=== PATIENT | female | born 1975 | race Caucasian/White ===

== ENCOUNTER 2020-10-14 06:30 | Emergency (ER) | payer OTHER ==
[~2020-10-14] VITALS: Ht 172.7 cm; Wt 88.5 kg
[~2020-10-14 06:30] MED LIST: ZOFRAN ODT 4 MG4 MG PO
[2020-10-14 08:15] LABS: HEMOGLOBIN 16.1 gm/dl (12.3-15.3); RED BLOOD COUNT 5.38 M/UL (4.00-5.10); WHITE BLOOD COUNT 14.5 K/UL (4.5-11.0)
[2020-10-14 09:27] LABS: BUN/CREATININE RATIO 18 (0-10)
[2020-10-14] MEDS ORDERED: VENTOLIN HFA 66.7 GM INH (14:44)
[2020-10-14] MEDS ORDERED: CLONAZEPAM1 MG PO (14:46)
[2020-10-14] MEDS ORDERED: FLUOXETINE HCL40 MG PO (14:47)
[2020-10-14] MEDS ORDERED: TIZANIDINE HCL4 MG PO (14:48)
[2020-10-14] MEDS ORDERED: ZYRTEC10 MG PO (15:53)
[2020-10-14] MEDS ORDERED: IBUPROFEN200 MG PO (15:55)
[2020-10-14] MEDS ORDERED: KEPPRA500 MG PO (15:56)
[2020-10-14] MEDS ORDERED: LOPRESSOR 25 MG25 MG PO (16:54)
== END 2020-10-14 17:10 | disposition home or self-care (01) ==
LOC: ER1 06:30 → CDU 14:06 → ER1 14:06
PROVIDERS: Emergency Medicine
DX: I47.1 Supraventricular tachycardia (principal); F41.9 Anxiety disorder, unspecified; Z88.2 Allergy status to sulfonamides; F17.210 Nicotine dependence, cigarettes, uncomplicated; Z20.822 Contact with and (suspected) exposure to COVID-19
CPT/HCPCS: 71045; 80053; 81001; 82550; 82553; 83605; 83690; 84439; 84443; 84484; 85025; 85379; 85610; 85652; 85730; 93005; 99285; J0153; Q9967; U0002

== ENCOUNTER → 2020-11-25 | Outpatient (CLI) | payer OTHER ==
[~2020-11-25] MED LIST changes: +CLONAZEPAM1 MG PO; +FLUOXETINE HCL40 MG PO; +IBU800 MG PO; +IBUPROFEN200 MG PO; +KEPPRA500 MG PO; +KLONOPIN1 MG PO; +LOPRESSOR 25 MG25 MG PO; +METOPROLOL TART25 MG PO; +PROZAC20 MG PO; +TIZANIDINE HCL4 MG PO; +VENTOLIN HFA 66.7 GM INH; +ZYRTEC10 MG PO
[2020-11-25 14:09] LABS: HEMOGLOBIN 14.4 gm/dl (12.3-15.3); RED BLOOD COUNT 4.75 M/UL (4.00-5.10); WHITE BLOOD COUNT 6.7 K/UL (4.5-11.0)
[2020-11-25 14:31] LABS: BUN/CREATININE RATIO 19 (0-10)
== END ==
LOC: LAB 13:28
PROVIDERS: Internal Medicine Cardiovascular Disease
DX: I47.1 Supraventricular tachycardia (principal); R00.2 Palpitations
CPT/HCPCS: 36415; 80048; 85025

== ENCOUNTER 2020-11-27 08:42 | Outpatient (CLI) | payer OTHER ==
[~2020-11-27] VITALS: Ht 172.7 cm; Wt 88.5 kg
[~2020-11-27 08:42] MED LIST changes: -IBU800 MG PO; -KLONOPIN1 MG PO; -METOPROLOL TART25 MG PO; -PROZAC20 MG PO
[2020-11-27] MEDS ORDERED: KLONOPIN1 MG PO (09:19)
[2020-11-27] MEDS ORDERED: METOPROLOL TART25 MG PO (09:20)
[2020-11-27] MEDS ORDERED: PROZAC20 MG PO (09:20)
[2020-11-27] MEDS ORDERED: IBU800 MG PO (09:20)
--- NOTE | 2020-11-27 18:37 | NUR ---
FIGURE 8 SUTURE REMOVED AT 1730. PRESSURE APPLIED 5 MINUTES. DRESSING REAPPLIED. RECHECKED AT 1745 DRESSING CDI. RECHECKED AT 1800 DRESSING CDI
--- NOTE | 2020-11-27 20:00 | NUR ---
PATIENT RESTING IN BED AT SHIFT CHANGE, DRESSING TO RT GROIN VISUALIZED, NO DRAINAGE OR SWELLING NOTED. PT DENIES HAVING PAIN AT SITE, C/O GENERALIZED ARTHRITIC PAIN. MEDICATION ADMINISTERED PER ORDERS. AT THIS TIME, PATIENT IS WALKING AROUND UNIT WITH FAMILY.
--- NOTE | 2020-11-27 22:00 | NUR ---
PATIENT IS CURRENTLY RESTING IN BED. NO S/S HEMATOMA TO RT GROIN; NO DRAINAGE NOTED TO DRESSING; PT C/O GENERALIZED PAIN, MEDICATION ADMINISTERED
== END 2020-11-28 10:00 | disposition home or self-care (01) ==
LOC: CATH 08:42 → PROG CARE 15:16 → CATH 11-28 10:00
DX: I47.1 Supraventricular tachycardia (principal); F17.210 Nicotine dependence, cigarettes, uncomplicated; F41.9 Anxiety disorder, unspecified; F32.9 Major depressive disorder, single episode, unspecified; L40.50 Arthropathic psoriasis, unspecified; Z88.2 Allergy status to sulfonamides; Z79.1 Long term (current) use of non-steroidal anti-inflammatories (NSAID); Z79.899 Other long term (current) drug therapy
CPT/HCPCS: 85347; 93005; 93613; 93620; 93621; 93622; 93623; 99152; 99153; C1730; C1733; C1766; J1200; J1644; J1742; J2250; J3010; J7040; J7050; Q9965

== ENCOUNTER 2022-01-24 23:43 | Emergency (ER) | payer OTHER ==
[~2022-01-24 23:43] MED LIST changes: +IBU800 MG PO; +KLONOPIN1 MG PO; +METOPROLOL TART25 MG PO; +PROZAC20 MG PO
[2022-01-25 00:33] LABS: HEMOGLOBIN 13.3 gm/dl (12.3-15.3); RED BLOOD COUNT 4.58 M/UL (4.00-5.10); WHITE BLOOD COUNT 12.4 K/UL (4.5-11.0)
[2022-01-25 00:54] LABS: BUN/CREATININE RATIO 19 (0-10)
[2022-01-25] MEDS ORDERED: DOXYCYCLINE HY100 MG PO (16:47)
[2022-01-25] MEDS ORDERED: KEPPRA500 MG PO (16:47)
[2022-01-28] MEDS ORDERED: DOXYCYCLINE HY100 M2 PO (11:53)
[2022-01-28] MEDS ORDERED: HYDROCODONE-AC1 EAC1 PO (11:54)
[2022-01-28] MEDS ORDERED: KEPPRA500 MG PO (11:54)
[2022-01-28] MEDS ORDERED: PRILOSEC OTC20 MG PO (11:55)
[2022-01-28] MEDS ORDERED: PROZAC40 MG PO (11:55)
== END 2022-01-25 06:04 | disposition home or self-care (01) ==
LOC: ER1 23:43
DX: S82.842A Displaced bimalleolar fracture of left lower leg, initial encounter for closed fracture (principal); F17.210 Nicotine dependence, cigarettes, uncomplicated; Z88.2 Allergy status to sulfonamides; F15.10 Other stimulant abuse, uncomplicated; F12.10 Cannabis abuse, uncomplicated; F11.10 Opioid abuse, uncomplicated; Z79.899 Other long term (current) drug therapy; X58.XXXA Exposure to other specified factors, initial encounter
CPT/HCPCS: 73610; 80053; 80307; 81001; 83690; 84703; 85025; 87077; 87086; 87186; 96374; 96375; 99284; J1885; J2405; J2550

== ENCOUNTER 2022-01-25 13:44 | Emergency (ER) | payer OTHER ==
[2022-01-25 14:30] LABS: WHITE BLOOD COUNT 14.9 K/UL (4.5-11.0)
[2022-01-25 14:31] LABS: HEMOGLOBIN 15.3 gm/dl (12.3-15.3); RED BLOOD COUNT 5.12 M/UL (4.00-5.10)
[2022-01-25 14:52] LABS: BUN/CREATININE RATIO 21 (0-10)
[2022-01-25] MEDS ORDERED: KEPPRA500 MG PO (16:47)
[2022-01-25] MEDS ORDERED: DOXYCYCLINE HY100 MG PO (16:47)
[2022-01-28] MEDS ORDERED: DOXYCYCLINE HY100 M2 PO (11:53)
[2022-01-28] MEDS ORDERED: KEPPRA500 MG PO (11:54)
[2022-01-28] MEDS ORDERED: HYDROCODONE-AC1 EAC1 PO (11:54)
[2022-01-28] MEDS ORDERED: PRILOSEC OTC20 MG PO (11:55)
[2022-01-28] MEDS ORDERED: PROZAC40 MG PO (11:55)
== END 2022-01-25 17:20 | disposition home or self-care (01) ==
LOC: ER1 13:44
PROVIDERS: Family Medicine
DX: G40.909 Epilepsy, unspecified, not intractable, without status epilepticus (principal); J18.9 Pneumonia, unspecified organism; F13.20 Sedative, hypnotic or anxiolytic dependence, uncomplicated; Z86.59 Personal history of other mental and behavioral disorders; Z20.822 Contact with and (suspected) exposure to COVID-19
CPT/HCPCS: 70450; 71045; 80053; 82550; 82553; 83605; 83735; 84439; 84443; 84484; 85025; 85610; 93005; 96374; 99285; G0480; J1953; U0002

== ENCOUNTER → 2022-01-28 | Outpatient (CLI) | payer OTHER ==
[~2022-01-28] MED LIST changes: +DOXYCYCLINE HY100 M2 PO; +DOXYCYCLINE HY100 MG PO; +HYDROCODONE-AC1 EAC1 PO; +PRILOSEC OTC20 MG PO; +PROZAC40 MG PO
[2022-01-28 12:06] LABS: HEMOGLOBIN 14.9 gm/dl (12.3-15.3); WHITE BLOOD COUNT 10.7 K/UL (4.5-11.0)
[2022-01-28 12:29] LABS: BUN/CREATININE RATIO 35 (0-10)
== END ==
LOC: OPSV2 01-27 12:30
PROVIDERS: Podiatrist Foot & Ankle Surgery
DX: Z01.818 Encounter for other preprocedural examination (principal)
CPT/HCPCS: 80048; 85027; 93005

== ENCOUNTER → 2022-02-02 | Day surgery (SDC) | payer OTHER ==
[~2022-02-02] VITALS: Ht 170.2 cm; Wt 92.5 kg
== END | disposition home or self-care (01) ==
LOC: OR 06:55
DX: S82.842A Displaced bimalleolar fracture of left lower leg, initial encounter for closed fracture (principal); S93.432A Sprain of tibiofibular ligament of left ankle, initial encounter; S91.302A Unspecified open wound, left foot, initial encounter; F17.210 Nicotine dependence, cigarettes, uncomplicated; G40.909 Epilepsy, unspecified, not intractable, without status epilepticus; L40.50 Arthropathic psoriasis, unspecified; D72.828 Other elevated white blood cell count; Z88.2 Allergy status to sulfonamides; Z88.1 Allergy status to other antibiotic agents; Z79.899 Other long term (current) drug therapy; V89.2XXA Person injured in unspecified motor-vehicle accident, traffic, initial encounter
CPT/HCPCS: 71045; 73600; 73610; 76000; C1713; J0690; J1100; J2250; J2795; J3010; J3370; Q4133

== ENCOUNTER → 2022-02-07 | Outpatient (CLI) | payer OTHER | LOC: KOH-I 14:00 | DX: S82.842D Displaced bimalleolar fracture of left lower leg, subsequent encounter for closed fracture with routine healing (principal) | CPT/HCPCS: 73610 ==

== ENCOUNTER → 2022-02-21 | Outpatient (CLI) | payer OTHER | LOC: KOH-I 13:13 | DX: S82.842D Displaced bimalleolar fracture of left lower leg, subsequent encounter for closed fracture with routine healing (principal); X58.XXXD Exposure to other specified factors, subsequent encounter | CPT/HCPCS: 73610 ==

== ENCOUNTER → 2022-02-24 | Outpatient (CLI) | payer OTHER ==
[~2022-02-24] VITALS: Ht 170.2 cm; Wt 92.5 kg
== END ==
LOC: OPSV 02-23 09:00
DX: S81.802D Unspecified open wound, left lower leg, subsequent encounter (principal); T81.31XA Disruption of external operation (surgical) wound, not elsewhere classified, initial encounter; X58.XXXA Exposure to other specified factors, initial encounter
CPT/HCPCS: 96365; C1751; J0696

== ENCOUNTER → 2022-03-07 | Outpatient (CLI) | payer OTHER | LOC: KOH-I 13:52 | DX: S82.842D Displaced bimalleolar fracture of left lower leg, subsequent encounter for closed fracture with routine healing (principal); X58.XXXD Exposure to other specified factors, subsequent encounter | CPT/HCPCS: 73610 ==

== ENCOUNTER 2022-03-15 16:46 | Emergency (ER) | payer OTHER ==
[2022-03-15 19:06] LABS: HEMOGLOBIN 12.4 gm/dl (12.3-15.3); WHITE BLOOD COUNT 8.2 K/UL (4.5-11.0)
[2022-03-15 19:13] LABS: BUN/CREATININE RATIO 21 (0-10)
[2022-03-15] MEDS ORDERED: ELIQUIS 5 MG TAB5 MG PO (22:20)
== END 2022-03-15 22:30 | disposition home or self-care (01) ==
LOC: ER1 16:46
PROVIDERS: Emergency Medicine
DX: M79.89 Other specified soft tissue disorders (principal)
CPT/HCPCS: 73630; 80053; 85025; 85652; 86140; 99283